=== PATIENT | female | born 1970 | race African-American/Black ===

== ENCOUNTER 2021-01-31 08:34 | Outpatient (CLI) | payer OTHER ==
[2021-01-31 10:37] LABS: Hemoglobin 12.4 g/dL (12.0-15.5); Mean Corpuscular HGB CONC 30.8 g/dL (32.0-36.0); Mean Corpuscular Hemoglobin 28.2 pg (27.0-33.0); Mean Corpuscular Volume 91.8 fl (81.6-98.3); Mean Platelet Volume 10.8 fl (7.4-10.4); Platelet Count 335 10x3/uL (150-450); RBC Distribution Width 13.1 % (11.5-14.5); Red Blood Cell (RBC) Count 4.39 10x6/uL (3.90-5.03); White Blood Cell (WBC) Count 5.1 10x3/uL (3.5-10.5)
[2021-01-31 17:35] LABS: SARS-CoV-2 PCR by NAA Not Detected (NotDetected)
== END 2021-01-31 08:35 | disposition home or self-care (01) ==
LOC: CSHLAB 08:34
PROVIDERS: ATTEND Otolaryngology Otolaryngic Allergy
DX: Z01.818 Encounter for other preprocedural examination (principal); Z20.822 Contact with and (suspected) exposure to COVID-19; E04.9 Nontoxic goiter, unspecified
CPT/HCPCS: 85027; 93005; 93010; U0003; U0005

== ENCOUNTER 2021-02-05 05:48 | Observation (INO) | payer OTHER ==
[2021-02-01 11:46] VITALS: BMI 31.8
[2021-02-05] MEDS ORDERED: Lidocaine 1% MPF 2 ML VIAL ONE (06:28)
[2021-02-05] MEDS ORDERED: PROPOFOL 20 ML ONE ×2 (06:43→08:08)
[2021-02-05] MEDS ORDERED: Ondansetron PF 4 MG/2 ML Vial ONE (06:43)
[2021-02-05] MEDS ORDERED: Midazolam HCl 2 mg/2 ml Vial ONE ×2 (06:43→06:52)
[2021-02-05] MEDS ORDERED: Fentanyl 100 MCG/2 ML VIAL ONE ×2 (06:43→06:59)
[2021-02-05] MEDS ORDERED: Rocuronium Bromide 10 MG/ML (10ML VIAL) ONE (06:43)
[2021-02-05] MEDS ORDERED: Dexamethasone 20 MG/5 ML VIAL ONE (06:44)
[2021-02-05] MEDS ORDERED: Lidocaine 1% w/Epinephrine 1:100K 20 ML VIAL ONE (07:32)
[2021-02-05] MEDS ORDERED: HYDROcodone/Acetaminophen 5/325 mg Tablet PO PRN (08:27)
[2021-02-05] MEDS ORDERED: Ondansetron ODT 4 MG TAB PO PRN (08:27)
[2021-02-05] MEDS ORDERED: Ondansetron PF 4 MG/2 ML Vial IVP PRN (08:27)
[2021-02-05] MEDS ORDERED: Meperidine HCl/PF 25 MG/ML VIAL ONE (08:33)
[2021-02-05] MEDS: HYDROcodone/Acetaminophen 5/325 mg Tablet PO PRN ×3 (10:58→19:46)
[2021-02-05] MEDS: Calcium Carbonate 500 MG ChewTAB PO SCH ×2 (15:23→19:47)
[2021-02-05] MEDS ORDERED: FLU VACC QS2021-22(6MOS UP)/PF 60 MCG/0.5 ML SYRINGE IM ONE (16:00)
[2021-02-06] MEDS: HYDROcodone/Acetaminophen 5/325 mg Tablet PO PRN ×2 (03:14)
[2021-02-06 08:13] VITALS: BP 144/67; TEMP 97.7
[2021-02-06] MEDS: Calcium Carbonate 500 MG ChewTAB PO SCH (08:16)
[2021-02-06] MEDS ORDERED: Cholecalciferol 1,000 UNITS (25 MCG) TAB PO SCH (09:00)
== END 2021-02-06 09:39 | disposition home or self-care (01) ==
LOC: CSHSDC 05:48 → CSHTELE 08:01
PROVIDERS: ADMIT Otolaryngology Otolaryngic Allergy; ATTEND Otolaryngology Otolaryngic Allergy
PROC: 0GTK0ZZ Resection of Thyroid Gland, Open Approach (ICD-10-PCS; principal; 2021-02-05)
PROC: 0GBJ0ZZ Excision of Thyroid Gland Isthmus, Open Approach (ICD-10-PCS; 2021-02-05)
DX: E04.1 Nontoxic single thyroid nodule (principal); E05.90 Thyrotoxicosis, unspecified without thyrotoxic crisis or storm
CPT/HCPCS: 82310; 83970; 88307; G0378; J1100; J2175; J2250; J2405; J2704; J3010